=== PATIENT | male | born 1980 | race Two or more races ===

== ENCOUNTER 2017-06-08 13:14 | Emergency (ER) | payer SELFPAY ==
[2017-06-08] MEDS: HYDROcodone/APAP 5/325MG 1 TAB TABLET PO (14:40)
== END 2017-06-08 14:55 | disposition home or self-care (01) ==
LOC: ER 13:14
DX: R51 Headache (principal); V43.62XA Car passenger injured in collision with other type car in traffic accident, initial encounter; Y93.89 Activity, other specified; Y92.410 Unspecified street and highway as the place of occurrence of the external cause; Y99.8 Other external cause status
CPT/HCPCS: 70450; 99284-25